=== PATIENT | male | born 1985 | race Caucasian/White ===

== ENCOUNTER → 2019-12-23 12:13 | Outpatient (BNVA) | payer OTHER, SELFPAY | PROVIDERS: Family Provider Nurse Practitioner; PCP Nurse Practitioner; Visit Provider Nurse Practitioner Family | DX: E78.5 Hyperlipidemia, unspecified (principal); E03.9 Hypothyroidism, unspecified; E55.9 Vitamin D deficiency, unspecified; Z79.899 Other long term (current) drug therapy; I10 Essential (primary) hypertension | CPT/HCPCS: 80053; 80061; 81001; 82306; 83036; 84443; 85025 ==

== ENCOUNTER → 2025-06-16 09:42 | Outpatient (BNVA) | payer OTHER, SELFPAY | PROVIDERS: Family Provider Nurse Practitioner Family; PCP Nurse Practitioner Family; Visit Provider Nurse Practitioner Family | DX: Z98.84 Bariatric surgery status (principal); R53.83 Other fatigue | CPT/HCPCS: 80053; 81003; 82150; 83690; 85025 ==

== ENCOUNTER → 2025-06-20 15:02 | Outpatient (BNVA) | payer OTHER, SELFPAY | PROVIDERS: Family Provider Nurse Practitioner Family; PCP Nurse Practitioner Family; Visit Provider Nurse Practitioner Family | DX: L80 Vitiligo (principal); R53.83 Other fatigue; R74.8 Abnormal levels of other serum enzymes | CPT/HCPCS: 80074; 86038 ==

== ENCOUNTER → 2025-06-22 14:21 | Outpatient (BNVA) | payer OTHER, SELFPAY | PROVIDERS: Family Provider Nurse Practitioner Family; PCP Nurse Practitioner Family; Visit Provider Nurse Practitioner Family | DX: R74.8 Abnormal levels of other serum enzymes (principal) | CPT/HCPCS: 86003; 86008; 86160; 86618; 86666; 86668; 86757 ==

== ENCOUNTER 2025-06-30 07:13 | Outpatient (CLI) | payer OTHER, SELFPAY ==
--- NOTE | 2025-06-30 08:00 | US_ITS ---
WS: [id number] RIGHT UPPER QUADRANT ULTRASOUND HISTORY: R74.8 - Abnormal levels of other serum enzymes COMPARISON: None available. Liver: 14.4 cm in length. Normal size liver and echogenicity. No bile duct dilatation or mass. Portal Vein: Normal hepatopetal flow with monophasic waveform. Gallbladder: Normally distended gallbladder with no stones or wall thickening. CBD: 0.5 cm Pancreas: Poorly visualized. Right kidney: 10.7 cm in length. Normal size and echogenicity. No hydronephrosis or mass. Aorta and IVC: Unremarkable abdominal aorta and IVC. No ascites. US/US liver [id number] IMPRESSION: Normal right upper quadrant ultrasound.
== END 2025-06-30 07:14 | disposition home or self-care (01) ==
PROVIDERS: PCP Nurse Practitioner Family; Visit Provider Nurse Practitioner Family
DX: R74.8 Abnormal levels of other serum enzymes (principal); K91.1 Postgastric surgery syndromes; Z98.84 Bariatric surgery status
CPT/HCPCS: 36415; 76705; 82951; 82952

== ENCOUNTER 2025-07-01 11:33 | Outpatient (CLI) | payer OTHER, SELFPAY ==
[2025-07-01 12:41] LABS: CRP High Sensitivity Cardiac < 0.150 mg/dL (0.0-0.3); Uric Acid 3.7 mg/dL (3.4-7.0)
[2025-07-01 14:25] LABS: Glucose 1 Hour 52 mg/dL
[2025-07-01 15:38] LABS: Glucose 2 Hour 39 mg/dL
== END 2025-07-01 11:34 | disposition home or self-care (01) ==
PROVIDERS: PCP Nurse Practitioner Family; Visit Provider Nurse Practitioner Family
DX: R53.83 Other fatigue (principal); R76.89 Other specified abnormal immunological findings in serum; L80 Vitiligo; E03.9 Hypothyroidism, unspecified; Z98.84 Bariatric surgery status; E16.2 Hypoglycemia, unspecified; R73.9 Hyperglycemia, unspecified; R63.4 Abnormal weight loss
CPT/HCPCS: 36415; 82951; 84550; 85651; 86036; 86141; 86200; 86812